=== PATIENT | male | born 1985 | race Caucasian/White ===

== ENCOUNTER 2017-06-11 14:51 | Outpatient (CLI) | payer OTHER ==
--- NOTE | 2017-06-12 09:45 | XRAY Report ---
TWO VIEW RIGHT ELBOW: 06/11/2017 CLINICAL INDICATION: Pain. FINDINGS: Frontal and lateral views of the right elbow demonstrate no evidence of fracture or dislocation. The joint spaces are preserved. No effusion is present. IMPRESSION: NORMAL RIGHT ELBOW. TD: 06/12/2017 09:45
== END 2017-06-11 14:52 | disposition home or self-care (01) ==
LOC: DI 14:51
PROVIDERS: ATTEND Family Medicine
DX: M25.521 Pain in right elbow (principal)

== ENCOUNTER 2017-10-02 11:09 | Outpatient (CLI) | payer OTHER | END 2017-10-02 11:10 | LOC: LAB.N 11:09 | PROVIDERS: ATTEND Family Medicine | DX: Z20.2 Contact with and (suspected) exposure to infections with a predominantly sexual mode of transmission (principal); R21 Rash and other nonspecific skin eruption | CPT/HCPCS: 36415; 81599; 86695; 86696; 86803; 87389; 87491; 87591 ==

== ENCOUNTER 2018-03-15 15:17 | Outpatient (CLI) | payer OTHER ==
--- NOTE | 2018-03-16 04:22 | MRI Report ---
Reason: CERVICAL RADICULOPATHY Procedure Date: 03/15/2018 Accession Number: [id number] / [id number] Procedure: MRI - Cervical Spine W/O CPT Code: FULL RESULT: EXAM: MRI CERVICAL SPINE WITHOUT CONTRAST EXAM DATE: 03/15/2018 03:54 PM. CLINICAL HISTORY: Cervical radiculopathy. COMPARISONS: CERVICAL SPINE COMPLETE 10/02/2017 9:01 AM. TECHNIQUE: Multiplanar, multisequence T1-weighted and fluid-sensitive sequences of the cervical spine without contrast. Other: None. FINDINGS: Neurologic Structures: The visualized posterior fossa structures are unremarkable. No signal abnormality in the visualized spinal cord. Alignment: There is no spondylolisthesis. Bone Marrow: No gross fractures or bone lesions. No marrow edema. Interspace Levels/Facets: C1-C2: Unremarkable. C2-C3: Unremarkable. C3-C4: A minimal disk bulge is present without spinal canal or foraminal stenosis. C4-C5: A small left paracentral protrusion and annular fissure are present without spinal or foraminal stenosis. C5-C6: A small right paracentral protrusion and annular fissure results in mild spinal canal stenosis without mass effect on the spinal cord. There is no foraminal narrowing. C6-C7: A small central protrusion and annular fissure are present without spinal canal stenosis. There is mild left foraminal narrowing due to uncovertebral hypertrophy. The right foramen is patent. C7-T1: There is mild left foraminal narrowing due to facet arthropathy. The spinal canal and right foramen are patent. Musculature: Normal. No edema or fatty atrophy. Other: The paravertebral and prevertebral soft tissues are normal. IMPRESSION: 1. Normal cervical spinal cord signal intensity. 2. Mild degenerative changes in the mid to lower cervical spine without high-grade spinal canal or foraminal stenosis. [facility]
== END 2018-03-15 15:18 | disposition home or self-care (01) ==
LOC: DI 15:17
PROVIDERS: ATTEND Orthopaedic Surgery
DX: M50.221 Other cervical disc displacement at C4-C5 level (principal); M47.9 Spondylosis, unspecified; M50.31 Other cervical disc degeneration, high cervical region
CPT/HCPCS: 72141

== ENCOUNTER 2020-04-21 11:25 | Outpatient (CLI) | payer OTHER | END 2020-04-21 23:59 | disposition home or self-care (01) | LOC: LAB.N 11:25 | PROVIDERS: ATTEND Family Medicine | DX: R09.81 Nasal congestion (principal); Z20.828 Contact with and (suspected) exposure to other viral communicable diseases | CPT/HCPCS: 87275; 87276 ==

== ENCOUNTER 2020-10-09 21:13 | Outpatient (CLI) | payer OTHER | END 2020-10-09 21:14 | disposition short-term general hospital (02) | LOC: EMS 21:13 | DX: S81.812D Laceration without foreign body, left lower leg, subsequent encounter (principal); W20.8XXD Other cause of strike by thrown, projected or falling object, subsequent encounter | CPT/HCPCS: A0425; A0429 ==